=== PATIENT | female | born 1970 | race African-American/Black ===

== ENCOUNTER 2016-06-24 05:26 | Day surgery (SDC) | payer BC ==
[2016-06-23 10:55] LABS: BASOPHILS 0.1 %; BASOPHILS ABSOLUTE 0.01 10/3/uL (0.0-0.16); EOSINOPHILS 0.2 %; EOSINOPHILS ABSOLUTE 0.02 10/3/uL (0.0-0.53); HEMOGLOBIN 9.2 g/dL (12.0-16.0); IMMATURE GRANULOCYTES 0.3 %; IMMATURE GRANULOCYTES ABSOLUTE 0.03 10/3/uL (0.0-0.11); LYMPHOCYTES ABSOLUTE 0.96 10/3/uL (0.67-4.30); MANUAL DIFF NO %; MEAN CORPUS HGB CONC 31.7 g/dL (32.0-36.0); MEAN CORPUSCULAR HEMOGLOB 29.5 pg (26.0-34.0); MEAN CORPUSCULAR VOLUME 92.9 fL (80-100); MEAN PLATELET VOLUME 9.7 fL (9.2-13.0); MONOCYTES 9.3 %; MONOCYTES ABSOLUTE 0.81 10/3/uL (0.21-1.20); NEUTROPHILS 79.1 %; NEUTROPHILS ABSOLUTE 6.88 10/3/uL (2.02-8.40); PLATELET COUNT 405 10/3/uL (150-400); RBC DISTRIBUTION WIDTH 15.6 % (12.0-16.0); RED CELL COUNT 3.12 10/6/uL (4.0-5.6); WHITE BLOOD CELLS 8.7 10/3/uL (4.5-10.5)
[2016-06-23 11:09] LABS: CALCIUM, SERUM 9.3 MG/DL (8.5-10.4); CHLORIDE, SERUM 107 MMOL/L (96-112); CO2 (CARBON DIOXIDE) 28 MMOL/L (24-34); CREATININE 0.97 MG/DL (0.55-1.02); GFR AFRICAN AMERICAN 82 ML/MIN (>=60); GFR NON AFRICAN AMERICAN 71 ML/MIN (>=60); POTASSIUM, SERUM 4.2 MMOL/L (3.5-5.3); SODIUM, SERUM 142 MMOL/L (135-148)
[2016-06-23 11:10] LABS: BUN (BLOOD UREA NITROGEN) 14 MG/DL (6-23); GLUCOSE, SERUM 119 MG/DL (60-99)
--- NOTE | ~2016-06-24 | OP ---
Record Of Operation [facility] [address] [place]. [address] NAME: LINDSEY SEO : [id number] STATUS : [facility]#: [id number] AGE: 46 ADM/REG DATE : 06/24/16 MR#: [id number] REPORT SERV DATE: 06/25/16 DICTATED BY: LUIS DANIEL SOLER DATE: 06/25/16 REPORT STATUS : Draft TRANSCRIBED BY: MODL DATE: 06/25/16 DATE OF PROCEDURE: 06/24/2016 PREOPERATIVE DIAGNOSES: 1. History of breast cancer. Completion of adjuvant chemotherapy. 2. Undesired Port-A-Cath. POSTOPERATIVE DIAGNOSES: 1. History of breast cancer. Completion of adjuvant chemotherapy. 2. Undesired Port-A-Cath. PROCEDURE PERFORMED: Removal of right-sided subclavian Port-A-Cath. SURGEON: Luis Daniel Soler M.D. ANESTHESIA: Local MAC. ESTIMATED BLOOD LOSS: Minimal. SPECIMENS: New Port-A-Cath. DETAILS: After informed consent was obtained, the patient was taken to operative suite and after successful induction of anesthesia, her right chest wall was prepped and draped in usual sterile fashion. Local was infiltrated. An incision was made through the previous scar. The Port-A-Cath was then grasped and delivered through the wound intact in its entirety. Skin edges were reapproximated using 3-0 Vicryl subdermals followed by 4-0 Monocryl subcuticular suture and Dermabond placed. At the completion of the case, all sponge and needle counts were correct. The patient was transferred to recovery room in satisfactory condition. ANTONIO/STEPHANY Luis Daniel Soler M.D. / [id number] CC: Cristin Jordan M.D.
[~2016-06-24 05:26] MED LIST: AMB10 PO; CARASPUDL PO; CAT2 PO; CELEXA10 PO; CELEXA40 MG PO; COREG25 PO; CRESTOR20 MG PO; ESTRADIOL1 MG PO; FLEX PO; KLOR-CON 1010 MEQ PO; LIPITOR80 MG PO; LISINOPRIL40 MG PO; LOTREL1 CA4 PO; P10 PO; PERCOCET1 TA4 PO; PRILO PO; SYN1 PO; SYNTHROID200 MCG PO; ZOFRAN4 PO
== END 2016-06-24 10:24 | disposition home or self-care (01) ==
LOC: SDC 05:26
PROVIDERS: Surgery
PROC: 0JPV3XZ Removal of Tunneled Vascular Access Device from Upper Extremity Subcutaneous Tissue and Fascia, Percutaneous Approach (ICD-10-PCS; principal; 2016-06-24 07:00)
DX: Z45.2 Encounter for adjustment and management of vascular access device (principal); I10 Essential (primary) hypertension; Z88.1 Allergy status to other antibiotic agents; D86.9 Sarcoidosis, unspecified; M32.9 Systemic lupus erythematosus, unspecified; Z90.49 Acquired absence of other specified parts of digestive tract; Z90.710 Acquired absence of both cervix and uterus; Z98.890 Other specified postprocedural states
CPT/HCPCS: 80048; 85025; 88300; 93005; A9270-GY; J0690; J2250; J2270; J2405; J2930; J3010